=== PATIENT | female | born 1985 ===

== ENCOUNTER 2017-03-07 13:27 | Emergency (ER) | payer SELFPAY ==
[2017-03-07 13:46] VITALS: BMI 22.9
[2017-03-07 13:50] VITALS: PULSE 88; O2SAT 100
[2017-03-07 15:00] LABS: BASO % 0.3 % (0.0-2.0); EOS # 0.1 K/uL (0.0-0.7); EOS % 1.3 % (0.0-4.0); HEMATOCRIT 43.7 % (34.0-47.0); LYMPH # 2.1 K/uL (1.0-4.3); LYMPH % 26.9 % (20.0-40.0); MEAN CELL VOLUME 89.4 fL (81.0-99.0); MEAN CORPUSCULAR HEMOGLOBIN 29.6 pg (27.0-31.0); MEAN CORPUSCULAR HGB CONC 33.1 g/dL (33.0-37.0); MEAN PLATELET VOLUME 7.8 fL (7.2-11.7); MONO # 0.6 K/uL (0.0-0.8); MONO % 8.4 % (0.0-10.0); NRBC % 0.1 % (0.0-2.0); RED CELL DISTRIBUTION WIDTH 12.4 % (11.5-14.5); WHITE BLOOD COUNT 7.6 K/uL (4.8-10.8)
[2017-03-07 15:08] LABS: CHLORIDE 99 mmol/L (98-107); POTASSIUM 3.8 mmol/L (3.6-5.2); SODIUM 139 mmol/L (132-148)
[2017-03-07 15:09] LABS: INR 1.1
[2017-03-07 15:10] LABS: GFR AFRICAN-AMERICAN > 60
[2017-03-07 15:11] LABS: ALB/GLOB RATIO 1.1 (1.0-2.1); ALKALINE PHOSPHATASE 94 U/L (38-126); ALT/SGPT 33 U/L (9-52); AST/SGOT 23 U/L (14-36); BILIRUBIN,TOTAL 0.6 mg/dL (0.2-1.3); BLOOD UREA NITROGEN 14 mg/dL (7-17); CALCIUM 9.8 mg/dl (8.6-10.4); CARBON DIOXIDE 27 mmol/L (22-30); GLUCOSE,RANDOM 85 mg/dL (65-105); TOTAL PROTEIN 8.7 g/dL (6.3-8.3)
--- NOTE | 2017-03-07 15:13 | RAD ---
HISTORY: chest pain COMPARISON: No prior. TECHNIQUE: Chest PA and lateral FINDINGS: LUNGS: No acute consolidation. PLEURA: No significant pleural effusion identified. No pneumothorax apparent. CARDIOVASCULAR: Round/elliptical shaped masslike opacity seen with 2 small metallic curvilinear foci likely surgical clips overlying the right upper cardiac silhouette possibly representing sequela prior ASD repair. Clinical correlation recommended. OSSEOUS STRUCTURES: No significant abnormalities. VISUALIZED UPPER ABDOMEN: Normal. OTHER FINDINGS: None. IMPRESSION: No acute cardiopulmonary disease. Findings suggest postoperative sequela as ASD repair however clinical correlation recommended.
--- NOTE | 2017-03-07 16:03 | C.PDOC ---
Time Seen by Provider: 03/07/17 14:21 Chief Complaint (Nursing): Chest Pain History Per: Patient Onset/Duration Of Symptoms: Days (1), Intermittent Episodes Current Symptoms Are (Timing): Better Severity: Moderate Quality: "Pain" Associated Symptoms: denies: Nausea, Dyspnea, Diaphoresis, Syncope Modifying Factors: None Exacerbating Factors: None Alleviating Factors: None Additional History Per: Prior Records Past Medical History Reviewed: Historical Data, Nursing Documentation, Vital Signs Vital Signs: Last Vital Signs Temp 98.5 F 03/07/17 13:40 Pulse 88 03/07/17 13:40 Resp 20 03/07/17 13:40 BP 110/82 03/07/17 13:40 Pulse Ox 100 03/07/17 13:40 - Medical History PMH: Asthma, 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 Constitutional: Negative for: Fever, Weakness Respiratory: Negative for: Shortness of Breath, Hemoptysis Gastrointestinal: Negative for: Nausea, Vomiting, Abdominal Pain Musculoskeletal: Negative for: Neck Pain, Back Pain, Leg Pain Skin: Negative for: Rash Neurological: Negative for: Weakness, Numbness Physical Exam - Physical Exam Appears: Non-toxic, No Acute Distress Skin: Normal Color, Warm, Dry, No Rash Head: Atraumatic, Normacephalic Eye(s): bilateral: Normal Inspection, PERRL, EOMI Neck: Normal ROM, Supple Cardiovascular: Rhythm Regular Respiratory: Normal Breath Sounds, No Accessory Muscle Use Gastrointestinal/Abdominal: Soft, No Tenderness Back: No CVA Tenderness Extremity: Normal ROM, No Pedal Edema, No Calf Tenderness Extremity: Bilateral: Normal Color And Temperature Neurological/Psych: Oriented x3, Normal Motor, Normal Sensation ED Course And Treatment - Laboratory Results Result Diagrams: 03/07/17 14:55 03/07/17 14:55 Lab Interpretation: No Acute Changes Urine POC: Negative ECG: Interpreted By Me, Viewed By Me ECG Rhythm: Sinus Rhythm ECG Interpretation: No Acute Changes Rate From EC O2 Sat by Pulse Oximetry: 100 Pulse Ox Interpretation: Normal - Radiology CXR: Viewed By Me, Read By Radiologist CXR Interpretation: Yes: No Acute Disease Reassessment Condition: Improved Disposition Counseled Patient/Family Regarding: Studies Performed, Diagnosis, Need For Followup - Disposition Referrals: [facility] [Outside] Disposition: HOME/ ROUTINE Disposition Time: 16:03 Condition: IMPROVED Additional Instructions: Follow up with your doctor or in the clinic within 1 week for further evaluation and treatment. Return to the ER if you develop shortness of breath, dizziness, worsening of symptoms or if you have any other concerns. Instructions: Noncardiac Chest Pain (ED) Forms: [employer] (Uzbek) Print Language: [place] - Clinical Impression Clinical Impression: Non-cardiac chest pain
[2017-03-07 16:23] VITALS: BP 96/77; RESP 18; TEMP 97.5
== END 2017-03-07 16:24 | disposition home or self-care (01) ==
LOC: C.ER 13:27
DX: R07.89 Other chest pain (principal)
CPT/HCPCS: 71020; 80053; 84484; 84703; 85025; 85610; 85730; 99284; G0480

== ENCOUNTER 2018-09-22 11:20 | Emergency (ER) | payer OTHER ==
[2018-09-22 11:20] VITALS: BMI 22.9
[2018-09-22] MEDS ORDERED: Lidocaine 5% Patch TD STA (12:31)
[2018-09-22] MEDS ORDERED: Lidocaine 5% Patch TD ONE (12:41)
--- NOTE | 2018-09-22 13:42 | C.PDOC ---
History Of Present Illness 32 y/o female presents to the ER complaining of left sided mid-back pain which began yesterday. Patient states that she took Naproxen without relief. Patient denies having direct trauma, radiation of pain, weakness, numbness, and bowel/bladder dysfunction. Time Seen by Provider: 09/22/18 12:06 Chief Complaint (Nursing): Back Pain History Per: Patient History/Exam Limitations: no limitations Onset/Duration Of Symptoms: Days Current Symptoms Are (Timing): Still Present Severity: Moderate Past Medical History Reviewed: Historical Data, Nursing Documentation, Vital Signs Vital Signs: Last Vital Signs Temp 98 F 09/22/18 11:44 Pulse 80 09/22/18 11:44 Resp 18 09/22/18 11:44 BP 103/69 09/22/18 11:44 Pulse Ox 99 09/22/18 11:44 Primary Care Provider: FAMILY PROVIDER,NO - Medical History PMH: Asthma, CVA (due to ASD, no residual deficits), HTN Other Surgeries: Hx of surgeries Family History: States: No Known Family Hx - Social History Hx Tobacco Use: No Hx Alcohol Use: No Hx Substance Use: No - Immunization History Hx Tetanus Toxoid Vaccination: No Hx Influenza Vaccination: No Hx Pneumococcal Vaccination: No Review Of Systems Except As Marked, All Systems Reviewed And Found Negative. Genitourinary: Negative for: Incontinence Musculoskeletal: Positive for: Back Pain Neurological: Negative for: Weakness, Numbness Physical Exam - Physical Exam Appears: Non-toxic, No Acute Distress Skin: Normal Color, Warm, Dry Head: Atraumatic, Normacephalic Eye(s): bilateral: Normal Inspection Nose: Normal Oral Mucosa: Moist Neck: Supple Chest: Symmetrical Cardiovascular: Rhythm Regular Respiratory: Normal Breath Sounds, No Rales, No Rhonchi, No Wheezing Gastrointestinal/Abdominal: Normal Exam, Soft, No Tenderness, No Guarding, No Rebound Back: No Vertebral Tenderness, Other (mild left parathoracic tenderness) Neurological/Psych: Oriented x3, Normal Speech ED Course And Treatment O2 Sat by Pulse Oximetry: 99 (RA) Pulse Ox Interpretation: Normal Medical Decision Making Medical Decision Making: Plan: --Prednisone PO --Lidoderm Patch On re-exam, the patient reports improvement of symptoms. Lungs are CTA, heart is RRR, abdomen is soft, non-tender and tolerating PO well. Pt ambulatory in the ED with steady gait. Disposition - Disposition Referrals: [facility] [Outside] [facility] [Outside] Disposition: HOME/ ROUTINE Disposition Time: 13:40 Condition: GOOD Additional Instructions: Follow up with the medical doctor within 1-2 days. Return if worsened. Prescriptions: Acetaminophen [Tylenol] 325 mg PO Q6 PRN #30 tab PRN Reason: Pain, Mild (1-3) Lidocaine 5% [Lidoderm] 1 each TP DAILY #10 patch predniSONE [Prednisone] 20 mg PO BID #10 tab Instructions: Muscle Spasms (DC) Forms: [employer] (Malagasy) Print Language: DANISH - Clinical Impression Clinical Impression: Muscle spasm - PA / SERVICE CLEANER / Resident Statement MD/DO has reviewed & agrees with the documentation as recorded. - Scribe Statement The provider has reviewed the documentation as recorded by the Beenaibceli Dean Provider Attestation All medical record entries made by the Scribe were at my direction and personally dictated by me. I have reviewed the chart and agree that the record accurately reflects my personal performance of the history, physical exam, medical decision making, and the department course for this patient. I have also personally directed, reviewed, and agree with the discharge instructions and disposition.
[2018-09-22 13:48] VITALS: PULSE 88; RESP 20
[2018-09-22 14:04] VITALS: BP 100/69; TEMP 98.7
[2018-09-22 15:07] VITALS: O2SAT 99
== END 2018-09-22 13:59 | disposition home or self-care (01) ==
LOC: C.ER 11:20
DX: M62.838 Other muscle spasm (principal)